=== PATIENT | female | born 1945 | race Caucasian/White ===

== ENCOUNTER 2019-04-07 13:09 | Outpatient (CLI) | payer MEDICARE, SELFPAY ==
[2019-04-07 14:00] VITALS: BP 128/74; PULSE 60; RESP 16; TEMP 36.7; O2SAT 96
[2019-04-07] MEDS: denosumab 60 mg SDV SUBCUT (14:08)
[2019-04-07 14:19] VITALS: BP 128/78; TEMP 36.7
== END 2019-04-07 13:10 | disposition home or self-care (01) ==
LOC: RHEOACUTE 13:10
PROVIDERS: Family Provider Family Medicine; PCP Family Medicine; Visit Provider Internal Medicine Rheumatology
DX: M81.0 Age-related osteoporosis without current pathological fracture (principal)
CPT/HCPCS: 96372; J0897

== ENCOUNTER 2019-10-11 15:23 | Outpatient (CLI) | payer MEDICARE, SELFPAY ==
[2019-10-11] MEDS: denosumab 60 mg SDV SUBCUT (15:25)
[2019-10-11 15:26] VITALS: BP 187/87; PULSE 76; RESP 16; TEMP 36.2; O2SAT 96; BMI 19.1
--- NOTE | 2019-10-11 15:38 | PC.NURSE ---
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
[2019-10-11 15:54] VITALS: BP 161/84; PULSE 75; RESP 16; TEMP 36.9; O2SAT 96
== END 2019-10-11 15:24 | disposition home or self-care (01) ==
LOC: RHEOACUTE 15:25
PROVIDERS: Family Provider Family Medicine; PCP Family Medicine; Visit Provider Internal Medicine Rheumatology
DX: M81.0 Age-related osteoporosis without current pathological fracture (principal)
CPT/HCPCS: 96372; J0897

== ENCOUNTER 2020-04-24 11:08 | Outpatient (CLI) | payer MEDICARE, SELFPAY ==
--- NOTE | 2020-04-24 13:55 | CT_ITS ---
WS: [id number] CT scan of the head, 04/24/2020 Clinical Data: VISION CHANGES Comparison: None. DLP: 992.[address] scans at [facility] use at least one of these dose optimization techniques: automat ed exposure control; mA and/or kV adjustment per patient size (includes targeted exams where dose is matched to clinical indication); or iterative reconstruction. Findings: The ventricular system is normal without shift. No recent infarct or hemorrhage is seen. There are no abnormal intracerebral masses. The cerebellum and brainstem are not remarkable. Bony windows of the skull and skull base show no fractures or erosions. The mastoid air cells, sport internship al auditory canals, sella turcica, intraorbital contents, and paranasal sinuses are unremarkable. CT/CT head wo con* [id number] Impression: Negative CT scan of the head
== END 2020-04-24 11:09 | disposition home or self-care (01) ==
PROVIDERS: PCP Family Medicine; Visit Provider Family Medicine
DX: H53.9 Unspecified visual disturbance (principal)
CPT/HCPCS: 70450

== ENCOUNTER 2020-10-26 12:10 | Outpatient (CLI) | payer MEDICARE, SELFPAY ==
--- NOTE | 2020-10-26 12:15 | USCV_ITS ---
Marj Proctor Age: 75 Gender: F : 1945 Exam Date: 10/26/2020 12:36 Ordering Phys: Peter Rivas MD Technologist: Cesilia Toribio [place] [facility] [place]: Bradycardia BP: 145 / 80 HR: 96 Rhythm: Sinus Technical Quality: Adequate MEASUREMENTS (Male / Female) Normal Values 2D ECHO LV Diastolic Diameter PLAX 2.6 cm 4.2 - 5.9 / 3.9 - 5.3 cm LV Systolic Diameter PLAX 1.8 cm IVS Diastolic Thickness 1.2 cm 0.6 - 1.0 / 0.6 - 0.9 cm IVS Systolic Thickness 1.4 cm LVPW Diastolic Thickness 1.0 cm 0.6 - 1.0 / 0.6 - 0.9 cm LVPW Systolic Thickness 1.2 cm RV Chamber Size 2.5 cm LVOT Diameter 2.0 cm LV Ejection Fraction 2D Teich 62.5 % LV Ejection Fraction MOD 2C 59.9 % LV Ejection Fraction 2C AL 58.1 % LA Diameter 2.0 cm LA Width 2.8 cm LA Height 3.3 cm RA Width 3.2 cm RA Height 3.7 cm Aorta at Sinotubular Diameter 1.8 cm M-MODE Aortic Annulus Diameter 2.2 cm LA Ao Ratio MM 1.1 MV E Point Septal Separation 0.2 cm DOPPLER AV Peak Velocity 81.0 cm/s LVOT Peak Velocity 91.0 cm/s AV Area Cont Eq vti 3.5 cm squared AV Area Cont Eq pk 3.6 cm squared MV Area PHT 5.0 cm squared Mitral E to A Ratio 0.8 MV E' Velocity 32.0 cm/s Mitral E to MV E' Ratio 8.3 Mitral E to LV E' Lateral Ratio 7.4 Mitral E to LV E' Septal Ratio 9.4 TR Peak Velocity 193.0 cm/s TR Peak Gradient 14.9 mmHg TV Peak E Velocity 53.0 cm/s Right Atrial Pressure 3.0 mmHg Pulmonary Artery Systolic Pressu 17.9 mmHg PV Peak Velocity 79.3 cm/s RV Acceleration Time 0.1 s RV Ejection Time 0.3 s RV AcT/ET 0.4 FINDINGS Left Ventricle Normal left ventricular size, systolic function and upper normal wall thickness, with no regional wall motion abnormalities. Left ventricular ejection fraction is estimated at 65-70 %. Normal diastolic function. Right Ventricle Normal right ventricular size and systolic function. Right ventricular systolic pressure 26 mmHg. Right Atrium Normal right atrial size. Right atrial pressure estimated at 3 mm Hg. Left Atrium Normal left atrial size. Mitral Valve Mildly thickened mitral valve. No mitral valve stenosis. Trace mitral valve regurgitation. Chordal systolic anterior motion noted. Aortic Valve Mildly thickened trileaflet aortic valve. No aortic valve stenosis. No aortic valve regurgitation. Tricuspid Valve Structurally normal tricuspid valve. Trace to mild tricuspid valve regurgitation. Pulmonic Valve Structurally normal pulmonic valve. No pulmonary valve stenosis. Trace pulmonary valve regurgitation. Pericardium No pericardial effusion. Aorta Normal size aortic root and proximal ascending aorta. Normal- sized inferior vena cava with normal respiratory variation. CONCLUSIONS 1. Normal left ventricular size, systolic function and wall thickness, with no regional wall motion abnormalities. Left ventricular ejection fraction is estimated at 65-70 %. Normal diastolic function. 2. Normal right ventricular size and systolic function. 3. Pulmonary artery pressure estimated at 26 mmHg. 4. No significant valvular abnormality. 5. No prior similar studies to compare. Aretha Rhoades MD (Electronically Signed) Final Date: 27 October 2020 15:35 S
== END 2020-10-26 12:11 | disposition home or self-care (01) ==
LOC: RAD 12:14
PROVIDERS: PCP Family Medicine; Visit Provider Family Medicine
DX: R00.1 Bradycardia, unspecified (principal)
CPT/HCPCS: 93306

== ENCOUNTER 2020-12-11 14:46 | Outpatient (CLI) | payer MEDICARE, SELFPAY ==
--- NOTE | 2020-12-11 15:14 | XR_ITS ---
WS: [id number] DEXA (DUAL ENERGY X-RAY ABSORPTIOMETRY) Bone mineral density was performed using a [employer] machine. HISTORY: OSTEOPOROSIS, POSTMENOPAUSAL COMPARISON: 04/14/2017 Lumbar spine BMD (L1-L4): 0.913 g/cm2 T score: -2.2 Z score: 0.0 Total hip BMD: Left: 0.661 g/cm2. T score: -2.8 Z score: -0.6 Right: 0.672 g/cm2. T score: -2.7 Z score: -0.5 10 year probability of a major osteoporotic fracture is 23%. Compared to the prior study from 04/14/2017. Lumbar spine bone mineral density has decreased by 1.8%. Bilateral hips bone mineral density has decreased by 4.2%. XR/XR DEXA axial skeleton* [id number] IMPRESSION: OSTEOPOROSIS based upon the WHO classification for females. Significant decreas e in bone mineral density within the hips since the prior study.
== END 2020-12-11 14:47 | disposition home or self-care (01) ==
PROVIDERS: PCP Family Medicine; Visit Provider Family Medicine
DX: M81.0 Age-related osteoporosis without current pathological fracture (principal); I27.20 Pulmonary hypertension, unspecified
CPT/HCPCS: 77080

== ENCOUNTER → 2021-01-16 15:06 | Outpatient (BNVA) | payer MEDICARE, SELFPAY | PROVIDERS: PCP Family Medicine; Visit Provider Family Medicine | DX: Z01.812 Encounter for preprocedural laboratory examination (principal); Z20.822 Contact with and (suspected) exposure to COVID-19 | CPT/HCPCS: 87635 ==